=== PATIENT | male | born 1955 | race Caucasian/White ===

== ENCOUNTER → 2017-02-05 | Outpatient (CLI) | payer BC, OTHER ==
[~2017-02-05] MED LIST: ISOVUE-370 76% 100ML VIAL (Q9967) As Ordered ONE
--- NOTE | 2017-02-05 09:11 | REP ---
CT of the chest with IV contrast : Comparison is 08/05/2014. Thoracic aortic measurements are as follows: The ascending thoracic aorta measures 4.0 centimeters, mildly dilated. Main pulmonary artery at this same level 2.5 cm. The aortic isthmus 2.9 cm. Proximal descending thoracic aorta 3.0 cm. This tapers to 2.6 cm at the diaphragm. Upon measuring the thoracic aorta on the comparison study. These measurements are identical. There are no infiltrates, effusions, nodules or masses. There is no mediastinal, hilar or axillary adenopathy. Cardiac size is normal. There is no pericardial effusion. The visualized upper abdominal contents are unremarkable. Impression: There is dilatation of the ascending thoracic aorta. Thoracic aorta is otherwise unremarkable. Measurements are unchanged from the 08/05/2014 comparison study. Otherwise, negative CT of the chest. Signed by Julio Cesar Solomon MD 02/05/2017 09:02 A
== END ==
LOC: M RAD 07:36
PROVIDERS: ATTEND Internal Medicine Cardiovascular Disease
DX: I71.4 Abdominal aortic aneurysm, without rupture (principal)
CPT/HCPCS: 71260; Q9967